=== PATIENT | female | born 1970 | race Caucasian/White ===

== ENCOUNTER 2018-02-25 03:41 | Observation (INO) | payer OTHER ==
[~2018-02-25] VITALS: Ht 157.5 cm; Wt 52.6 kg
[~2018-02-25 03:41] MED LIST: AMOXICILLIN500 M2 PO; ANTIBIOTIC FOR UTI; ANUSOL HC EX; CEPHALEXIN500 MG PO; COLACE100 MG OR; DARVOCET N-100100 - OR; MOTRIN600 MG/TAB PO; NAPROSYN500 MG OR; NORCO1 TA1 PO; PRENAPLUS PO; ROBITUSSIN200 MG/10 PO; TYLENOL # 31 TA1 PO
[2018-02-25 04:50] LABS: URINE BILIRUBIN - DIPSTICK NEGATIVE (NEGATIVE); URINE BLOOD DIPSTICK NEGATIVE (NEGATIVE); URINE COLOR YELLOW; URINE GLUCOSE - DIPSTICK NEGATIVE (NEGATIVE); URINE KETONE NEGATIVE (NEGATIVE); URINE LEUK ESTERASE NEGATIVE (NEGATIVE); URINE PH 6.5 (4.5-8.0); URINE PROTEIN - DIPSTICK NEGATIVE (NEG-TRACE); URINE UROBILINOGEN - DIPSTICK 0.2 E.U./dL (0.2)
[2018-02-25 04:51] LABS: URINE CLARITY CLOUDY; URINE NITRITE - DIPSTICK POSITIVE (Negative)
[2018-02-25 04:54] LABS: HEMATOCRIT 37.8 % (37.0-47.0); IMMATURE GRANULOCYTES 0.1 % (0.0-5.0); MEAN CORPUSCULAR HGB 24.3 pG CALC (26.0-32.0); MEAN CORPUSCULAR HGB CONC 30.7 g/L CALC (32.0-36.0); NEUT# 4.57 thou/uL (2.00-7.15); RED BLOOD COUNT 4.78 mill/uL (4.20-5.60); RED CELL DISTRI WIDTH 18.2 % (11.5-15.5)
[2018-02-25 04:55] LABS: HEMOGLOBIN 11.6 g/dl (12.0-16.0); MEAN CELL VOLUME 79.1 fL CALC (80.0-100.0)
[2018-02-25 04:56] LABS: BARBITURATES NEGATIVE (NEGATIVE); COCAINE POSITIVE (NEGATIVE); METHADONE NEGATIVE (NEGATIVE); OXCYCODONE NEGATIVE (NEGATIVE); TETRAHYDROCANNABIONOL NEGATIVE (NEGATIVE); TRICYLIC ANTIDEPRESSANTS NEGATIVE (NEGATIVE)
[2018-02-25 04:57] LABS: URINE RBC 0-2 RBC/hpf (0-5); URINE SQUAMOUS EPITHELIAL CELL MODERATE EPI/hpf (0-FEW)
[2018-02-25 04:58] LABS: URINE BACTERIA FEW hpf; URINE BACTERIA MANY hpf
[2018-02-25 05:04] LABS: ALBUMIN 3.5 g/dL (3.2-5.0); ALKALINE PHOSPHATASE 60 u/l (38-126); BILIRUBIN, TOTAL 0.2 mg/dL (0.0-1.4); BUN 19 mg/dL (7-17); BUN/CREATININE RATIO 23 (12-20 (CALC)); CHLORIDE 110 mmol/l (95-108); CREATININE 0.8 mg/dL (0.5-1.0); GFR > 60 ML/MIN (>=60 (CALC)); GFR FOR AFR.AMER. > 60 ML/MIN (>=60 (CALC)); POTASSIUM 4.3 mmol/l (3.5-5.1); SGOT/AST 29 u/l (14-36); SGPT/ALT 29 u/l (9-52); SODIUM 144 mmol/l (137-146); TOTAL PROTEIN 6.2 g/dL (6.3-8.2)
[2018-02-25 05:06] LABS: ANION GAP 12 (6-22 (CALC))
[2018-02-25 05:07] LABS: CARBON DIOXIDE 26 mmol/l (22-30)
[2018-02-25 05:12] LABS: MYOGLOBIN 19 ng/mL (0 - 62)
[2018-02-25 06:45] VITALS: BP 170/79
[2018-02-25 07:00] VITALS: BP 170/92
[2018-02-25 11:00] VITALS: BP 162/82
[2018-02-25 12:00] VITALS: BP 162/80
[2018-02-25 13:00] VITALS: BP 162/86
[2018-02-25] MEDS ORDERED: LISINOPRIL10 MG PO (13:38)
[2018-02-25 14:00] VITALS: BP 162/86
== END 2018-02-25 14:49 | disposition home or self-care (01) ==
LOC: ED 03:41 → ED-I 05:40 → ED 06:29 → ICU 06:30
PROVIDERS: Emergency Medicine; ADMIT Internal Medicine; ATTEND Internal Medicine
DX: R07.9 Chest pain, unspecified (principal); F14.10 Cocaine abuse, uncomplicated; I10 Essential (primary) hypertension; F17.200 Nicotine dependence, unspecified, uncomplicated; E78.5 Hyperlipidemia, unspecified; D63.8 Anemia in other chronic diseases classified elsewhere; E46 Unspecified protein-calorie malnutrition; Z86.74 Personal history of sudden cardiac arrest; Z91.14 Patient's other noncompliance with medication regimen; Z68.20 Body mass index [BMI] 20.0-20.9, adult

== ENCOUNTER 2019-01-17 13:42 | Emergency (ER) | payer OTHER ==
[~2019-01-17] VITALS: Ht 157.5 cm; Wt 59.1 kg
[~2019-01-17 13:42] MED LIST changes: +LISINOPRIL10 MG PO
[2019-01-17 14:32] LABS: IMMATURE GRANULOCYTES 0.5 % (0.0-5.0); MEAN CORPUSCULAR HGB CONC 27.5 g/L CALC (32.0-36.0); NEUT# 10.03 thou/uL (2.00-7.15); RED BLOOD COUNT 4.89 mill/uL (4.20-5.60); RED CELL DISTRI WIDTH 18.6 % (11.5-15.5)
[2019-01-17 14:34] LABS: HEMOGLOBIN 8.8 g/dl (12.0-16.0); MEAN CELL VOLUME 65.4 fL CALC (80.0-100.0)
[2019-01-17 14:49] LABS: ALKALINE PHOSPHATASE 80 u/l (38-126); ANION GAP 12 (6-22 (CALC)); BUN 15 mg/dL (7-17); BUN/CREATININE RATIO 14 (12-20 (CALC)); CARBON DIOXIDE 27 mmol/l (22-30); CHLORIDE 103 mmol/l (95-108); CREATININE 1.1 mg/dL (0.5-1.0); GFR 53 ML/MIN (>=60 (CALC)); GFR FOR AFR.AMER. > 60 ML/MIN (>=60 (CALC)); LIPASE 49 u/l (23-300); SGOT/AST 20 u/l (14-36); SODIUM 138 mmol/l (137-146); TOTAL PROTEIN 7.3 g/dL (6.3-8.2)
[2019-01-17 14:54] LABS: BILIRUBIN, TOTAL 0.8 mg/dL (0.0-1.4)
[2019-01-17 15:39] LABS: URINE BILIRUBIN - DIPSTICK NEGATIVE (NEGATIVE); URINE BLOOD DIPSTICK NEGATIVE (NEGATIVE); URINE COLOR YELLOW; URINE GLUCOSE - DIPSTICK NEGATIVE (NEGATIVE); URINE KETONE NEGATIVE (NEGATIVE); URINE LEUK ESTERASE NEGATIVE (NEGATIVE); URINE NITRITE - DIPSTICK NEGATIVE (Negative); URINE PH 6.5 (4.5-8.0); URINE PROTEIN - DIPSTICK NEGATIVE (NEG-TRACE); URINE SPECIFIC GRAVITY <=1.005
[2019-01-17 15:56] LABS: BARBITURATES NEGATIVE (NEGATIVE); COCAINE POSITIVE (NEGATIVE); METHADONE NEGATIVE (NEGATIVE); OXCYCODONE NEGATIVE (NEGATIVE); TETRAHYDROCANNABIONOL NEGATIVE (NEGATIVE); TRICYLIC ANTIDEPRESSANTS NEGATIVE (NEGATIVE)
[2019-01-17] MEDS ORDERED: ONDANSETRON4 MG PO (16:05)
[2019-01-17 16:20] VITALS: BP 137/76
== END 2019-01-17 16:20 | disposition home or self-care (01) ==
LOC: ED 13:42
PROVIDERS: Family Medicine
DX: R10.11 Right upper quadrant pain (principal); R10.12 Left upper quadrant pain; I10 Essential (primary) hypertension; F17.210 Nicotine dependence, cigarettes, uncomplicated; R06.02 Shortness of breath

== ENCOUNTER 2019-01-21 19:52 | Observation (INO) | payer OTHER ==
[~2019-01-21] VITALS: Ht 157.5 cm; Wt 57.2 kg
[~2019-01-21 19:52] MED LIST changes: +ONDANSETRON4 MG PO
--- NOTE | 2019-01-21 19:52 | NUR ---
PATIENT TO TREATMENT AREA AND STRAIGHT TO BATHROOM FOR URINE SAMPLE.
--- NOTE | 2019-01-21 19:56 | NUR ---
TRIAGE COMPLETED AT BEDSIDE. PATIENT UNDRESSED INTO A GOWN. REQUESTING TV REMOTE, STATES SHE JUST WANTS TO SLEEP. AWAITING MD PIÑA.
[2019-01-21 20:41] LABS: URINE BILIRUBIN - DIPSTICK NEGATIVE (NEGATIVE); URINE BLOOD DIPSTICK NEGATIVE (NEGATIVE); URINE COLOR YELLOW; URINE GLUCOSE - DIPSTICK NEGATIVE (NEGATIVE); URINE KETONE NEGATIVE (NEGATIVE); URINE LEUK ESTERASE NEGATIVE (NEGATIVE); URINE NITRITE - DIPSTICK NEGATIVE (Negative); URINE PROTEIN - DIPSTICK TRACE mg/dL (NEG-TRACE); URINE SPECIFIC GRAVITY >=1.030
--- NOTE | 2019-01-21 20:42 | NUR ---
PATEINT MEDICATED ORDERED. WILL MONITOR FOR EFFECT. PATIENT AWARE OF PENDING XRAY.
[2019-01-21 21:03] LABS: HEMATOCRIT 28.5 % (37.0-47.0); HEMOGLOBIN 7.9 g/dl (12.0-16.0); IMMATURE GRANULOCYTES 0.5 % (0.0-5.0); MEAN CELL VOLUME 65.5 fL CALC (80.0-100.0); MEAN CORPUSCULAR HGB 18.2 pG CALC (26.0-32.0); MEAN CORPUSCULAR HGB CONC 27.7 g/L CALC (32.0-36.0); NEUT# 5.91 thou/uL (2.00-7.15); RED BLOOD COUNT 4.35 mill/uL (4.20-5.60); RED CELL DISTRI WIDTH 18.6 % (11.5-15.5)
[2019-01-21 21:20] LABS: ALBUMIN 3.3 g/dL (3.2-5.0); ALKALINE PHOSPHATASE 71 u/l (38-126); ANION GAP 10 (6-22 (CALC)); BUN 14 mg/dL (7-17); BUN/CREATININE RATIO 14 (12-20 (CALC)); CARBON DIOXIDE 26 mmol/l (22-30); CHLORIDE 108 mmol/l (95-108); GFR 59 ML/MIN (>=60 (CALC)); GFR FOR AFR.AMER. > 60 ML/MIN (>=60 (CALC)); LIPASE 66 u/l (23-300); POTASSIUM 4.3 mmol/l (3.5-5.1); SGOT/AST 14 u/l (14-36); SODIUM 139 mmol/l (137-146); TOTAL PROTEIN 6.2 g/dL (6.3-8.2)
[2019-01-21 21:21] LABS: AMYLASE < 30 u/l (30-110); BILIRUBIN, TOTAL 0.3 mg/dL (0.0-1.4)
--- NOTE | 2019-01-21 21:30 | NUR ---
PATIENT STATES PAIN IS A 6 ON 1-10 PAIN SCALE. AWAITING CXR TO BE COMPLETED.
--- NOTE | 2019-01-21 22:40 | NUR ---
PATIENT RETURNS FROM RADIOLOGY. ASKING FOR ICE CHIPS. REMINDED OF NPO STATUS WHILE AWAITING CT RESULTS. VERBALIZES UNDERSTANDING.
--- NOTE | 2019-01-21 23:25 | NUR ---
PATIENT UP TO BATHROOM WITH MINIMAL ASSIST.
--- NOTE | 2019-01-21 23:47 | NUR ---
MD AT BEDSIDE TO DISCUSS ALL RESULTS AND PLAN OF CARE.
[2019-01-22] VITALS (7 sets, daily range): BP systolic 138–155; BP diastolic 70–95
[2019-01-22 00:07] LABS: BARBITURATES NEGATIVE (NEGATIVE); COCAINE POSITIVE (NEGATIVE); METHADONE NEGATIVE (NEGATIVE); OXCYCODONE NEGATIVE (NEGATIVE); TETRAHYDROCANNABIONOL NEGATIVE (NEGATIVE); TRICYLIC ANTIDEPRESSANTS NEGATIVE (NEGATIVE)
--- NOTE | 2019-01-22 00:16 | NUR ---
REPORT CALLED TO KAREN CHAVES. PATIENT READIED FOR TRANSPORT TO FLOOR. AWAITING ADMISSION PACKET PRIOR TO DEPARTURE.
--- NOTE | 2019-01-22 00:35 | NUR ---
PT ARRIVED TO THE FLOOR VIA WC ACCOMPANIED BY ED NURSE. PT APPEARS TO BE IN STABLE CONDITION, SELF AMBULATED TO STANDING SCALE AND TO THE BED. AIDE IN W/PT AT THIS TIME OBTAINING V/S AND ORIENTING PT TO ROOM,CALL SYSTEM, LIGHTS AND BED.
--- NOTE | 2019-01-22 00:47 | NUR ---
TO MS2 VIA W/C
--- NOTE | 2019-01-22 00:56 | NUR ---
PATIENT TO FLOOR ON MONITOR VIA WHEELCHAIR.
--- NOTE | 2019-01-22 01:15 | NUR ---
PT HAS BEEN ASSESSED, ABD TENDER TO PALPATE RUQ AND RLQ. PT DENIES N/V/D AND IS ASKING FOR FOOD/PROVIDED SANDWICH AND DRINK. CALL LIGHT IS IN PT HAND, TV AND LIGHTS ON. SHE HAS BEEN ENCOURAGED TO CALL NEEDS ARISE.
--- NOTE | 2019-01-22 04:15 | NUR ---
PT IS SLEEPING AT THIS TIME. NO S/O DISTRESS NOTED.
[2019-01-22 06:41] LABS: PROTHROMBIN TIME 10.2 SECONDS (9.0-12.5)
--- NOTE | 2019-01-22 07:19 | NUR ---
PT A/O X3. SPEECH IS CLEAR. RESP EVEN AND UNLABORED. LUNG SOUNDS CLEAR. TELE IN PLACE. BOWEL SOUNDS ACTIVE X4. PT C/O ACHING ABDOMINAL PAIN; 10 OUT OF 10. RT SIDED ABDOMINAL TENDERNESS. REPOSITONED FOR COMFORT. DISCUSSED W/ PT I WILL GET ORDER FOR PAIN MEDICATION. PT STATES UNDERSTANDING. #20 LAC SL. FLUSHED AND PATENT. SITE APPEARS HEALTHY. STRONG RADIAL AND PEDAL PULSES. SKIN INTACT. PT DENIES ANY FURTHER NEEDS. POC DISCUSSED. SAFETY PRECAUTIONS IN PLACE. CALL LIGHT IN REACH. WILL CONTINUE TO MONITOR.
--- NOTE | 2019-01-22 08:10 | NUR ---
PT REPORT RECIEVED FROM KAREN CHAVES. PT RESTING. NO S/S OF DISTRESS. CALL LIGHT IN REACH. WILL CONTINUE TO MONITOR.
--- NOTE | 2019-01-22 12:00 | NUR ---
PT EATING LUNCH. NO C/O PAIN OR NEEDS. CALL LIGHT IN REACH. WILL CONTINUE TO MONITOR.
--- NOTE | 2019-01-22 14:10 | NUR ---
ANESTHESIA TO FLOOR TO DISCUSS POSSIBLE PROCEDURE TOMORROW. PT STATES UNDERSTANDING. CONSENT READ AND DISCUSSED W/ PT BY SUBSCRIPTION AGENT. PT VERALIZES UNDERSTANDING. CONSENT SIGNED.
--- NOTE | 2019-01-22 16:32 | NUR ---
PT RESTING. NO C/O PAIN OR NEEDS. CALL LIGHT IN REACH. WILL CONTINUE TO MONITOR.
[2019-01-22 16:57] LABS: URINE BILIRUBIN - DIPSTICK NEGATIVE (NEGATIVE); URINE BLOOD DIPSTICK NEGATIVE (NEGATIVE); URINE COLOR YELLOW; URINE GLUCOSE - DIPSTICK NEGATIVE (NEGATIVE); URINE KETONE NEGATIVE (NEGATIVE); URINE LEUK ESTERASE NEGATIVE (Negative); URINE NITRITE - DIPSTICK NEGATIVE (Negative); URINE PH 5.5 (4.5-8.0); URINE PROTEIN - DIPSTICK TRACE mg/dL (NEG-TRACE); URINE SPECIFIC GRAVITY 1.025; URINE UROBILINOGEN - DIPSTICK 0.2 E.U./dL (0.2)
[2019-01-22 17:02] LABS: URINE CLARITY CLEAR
[2019-01-22 17:21] LABS: BARBITURATES NEGATIVE (NEGATIVE); COCAINE POSITIVE (NEGATIVE); METHADONE NEGATIVE (NEGATIVE); OXCYCODONE NEGATIVE (NEGATIVE); TETRAHYDROCANNABIONOL NEGATIVE (NEGATIVE); TRICYLIC ANTIDEPRESSANTS NEGATIVE (NEGATIVE)
--- NOTE | 2019-01-22 20:43 | NUR ---
pt medicated as orders provide and for pain reported 9/10 in ruq of the abd. pt assessed/tender to palpate in ruq. pt describes pain mostly under right breast/upper abd area. no noted edema. pulses are strong. neuro's intact. locx3. no s/o distress. denies n/v at this time. pt high fowlers left watching tv.
--- NOTE | 2019-01-23 | NUR ---
PT PLACED NPO AND REMINDED/FLUIDS REMOVED FROM BEDSIDE. PT COMPLETED 75% OF NULYTELY.
--- NOTE | 2019-01-23 03:38 | NUR ---
PT IS SLEEPING SOUNDLY, NO S/O DISTRESS AT THIS TIME. PT HAS BEEN NPO SINCE MIDNIGHT. CALL LIGHT AT SIDE.
[2019-01-23 04:35] VITALS: BP 131/80
[2019-01-23 05:47] LABS: HEMATOCRIT 31.1 % (37.0-47.0); HEMOGLOBIN 8.5 g/dl (12.0-16.0); MEAN CELL VOLUME 64.8 fL CALC (80.0-100.0); MEAN CORPUSCULAR HGB 17.7 pG CALC (26.0-32.0); MEAN CORPUSCULAR HGB CONC 27.3 g/L CALC (32.0-36.0); RED BLOOD COUNT 4.8 mill/uL (4.20-5.60)
--- NOTE | 2019-01-23 05:59 | NUR ---
PT IS SLEEPING SOUNDLY, DID NOT AWAKE TO MY ENTERING ROOM. ROOM IS DARK/COOL. NO S/O DISTRESS. CALL LIGHT IS AT SIDE AND BED IN LOWEST POSITION.
[2019-01-23 06:18] LABS: ANION GAP 11 (6-22 (CALC)); BUN 12 mg/dL (7-17); BUN/CREATININE RATIO 13 (12-20 (CALC)); CARBON DIOXIDE 25 mmol/l (22-30); CHLORIDE 110 mmol/l (95-108); GFR 59 ML/MIN (>=60 (CALC)); GFR FOR AFR.AMER. > 60 ML/MIN (>=60 (CALC)); POTASSIUM 4.3 mmol/l (3.5-5.1); SODIUM 141 mmol/l (137-146)
[2019-01-23 08:40] VITALS: BP 151/77
--- NOTE | 2019-01-23 08:40 | NUR ---
ASSESSMENT IS COMPLETED: IV SITE IS FREE FROM REDNESS OR EDEMA. HR IS REG,PULSES ARE STRONG X4, ABD IS SOFT WITH ACTIVE BS. BREATH SOUNDS ARE CLEAR, BILATERALLY. TELE MONITOR IN PLACE. CONTINUE TO OSBERVE AND MONITOR.
[2019-01-23 10:19] LABS: COCAINE POSITIVE (NEGATIVE); METHADONE NEGATIVE (NEGATIVE); TETRAHYDROCANNABIONOL NEGATIVE (NEGATIVE)
[2019-01-23 10:20] LABS: BARBITURATES NEGATIVE (NEGATIVE); OXCYCODONE NEGATIVE (NEGATIVE); TRICYLIC ANTIDEPRESSANTS NEGATIVE (NEGATIVE)
[2019-01-23 10:40] VITALS: BP 158/93
--- NOTE | 2019-01-23 12:30 | NUR ---
PT IS RELAXING AND ANXIOUSLY WAITING TO SPEAK WITH THE DR ABOUT THE PLANS FOR TODAY., IV SITE IS FREE FROM REDNESS OR EDEMA.
--- NOTE | 2019-01-23 12:53 | NUR ---
FULL LIQUID AND AMBULATING TO THE BATHROOM. WILL DO PROCEDURE ON SATURDAY AFTERNOON. CONTINUE TO OSBERVE AND MONITPR.
[2019-01-23 14:58] VITALS: BP 135/84
--- NOTE | 2019-01-23 16:30 | NUR ---
PT IS RELAXING IN BED WITH NO DISTRESS NOTED. IV SITE IS FREE FROM REDNESS OR EDEAM. CONTINUE TO OSBERVE AND MONITOR.
--- NOTE | 2019-01-23 19:00 | NUR ---
RECIEVED REPROT FROM DAY NURSE. PT RESTING IN BE WATCHING TV. NO NEEDS AT THIS TIME CALL SORENSON IN REACH. WILL CONTINUE TO MONITOR.
[2019-01-23 20:06] VITALS: BP 137/78
--- NOTE | 2019-01-23 20:30 | NUR ---
PT RESTING IN BED WATCHING TV. ASSESMENT COMPLETED AT THIS TIME, SEE INTERVENTIONS. PT C/O IV PAIN. NO REDNESS OR EDEMA NOTED, FLUSHES WITH NO ISSUES. PT HAS NO NEEDS AT THIS TIME. CALL SORENSON IN REACH. WILL CONTINUE TO MONITOR.
--- NOTE | 2019-01-24 | NUR ---
PT RESTING IN BED WITH EYES CLOSED. NO S/S OF DISTRESS NOTED. CALL SORENSON IN REACH. WILL CONTINUE TO MONITOR.
[2019-01-24 00:29] VITALS: BP 130/79
--- NOTE | 2019-01-24 04:00 | NUR ---
PT APPEARS TO BE ASLEEP AT THIS TIME. NO S/S OF DISTRESS NOTED. CALL SORENSON IN REACH. WILL CONTINUE TO MONITOR.
[2019-01-24 04:07] VITALS: BP 149/90
--- NOTE | 2019-01-24 06:45 | NUR ---
RECIEVED REPORT FROM MORRO DICKINSON. [facility] PT [facility].
[2019-01-24 08:00] VITALS: BP 144/77
--- NOTE | 2019-01-24 08:00 | NUR ---
PT RESTING IN BED, ASSESSMENT COMPLETED. PT COMPLAINS OF R FLANK PAIN, WILL BE MEDICATED PER ORDERS. A&OX3, ABLE TO MAKE NEEDS KNOWN. CALL LIGHT IN REACH. PT TO HAVE EGD/COLONOSCOPY ON SATURDAY. WILL MONITOR.
--- NOTE | 2019-01-24 09:10 | NUR ---
PT UP TO SHOWER, STEADY GAIT.
[2019-01-24 11:29] VITALS: BP 128/78
[2019-01-24] MEDS ORDERED: PROTONIX40 MG PO (11:34)
[2019-01-24] MEDS ORDERED: SUCRALFATE1 GM/10 ML PO (11:35)
--- NOTE | 2019-01-24 12:10 | NUR ---
IV site discontinued, cath intact. No edema , no redness, voices no discomfort.
--- NOTE | 2019-01-24 12:11 | NUR ---
DR. WHEAT AT BEDSIDE FOR ASSESSMENT AND TO DISCUSS PLAN OF CARE, NEW ORDERS RECIEVED.
--- NOTE | 2019-01-24 12:30 | NUR ---
Discharge instructions given. Patient verbalizes understanding of same. Discharged in stable condition via Wheelchair to Home with family. All belongings sent with pt. PAPER PRESCRIPTION SENT HOME WITH PT.
== END 2019-01-24 12:18 | disposition home or self-care (01) ==
LOC: ED 19:52 → ED-I 23:50 → ED 01-22 00:06 → MS2 01-22 00:07
PROVIDERS: Emergency Medicine; Internal Medicine; Surgery; ADMIT Internal Medicine; ATTEND Internal Medicine
DX: R10.11 Right upper quadrant pain (principal); D50.0 Iron deficiency anemia secondary to blood loss (chronic); R19.5 Other fecal abnormalities; I51.7 Cardiomegaly; R79.89 Other specified abnormal findings of blood chemistry; F14.10 Cocaine abuse, uncomplicated; F12.90 Cannabis use, unspecified, uncomplicated; I10 Essential (primary) hypertension; F17.210 Nicotine dependence, cigarettes, uncomplicated; Z86.74 Personal history of sudden cardiac arrest; Z87.11 Personal history of peptic ulcer disease
CPT/HCPCS: G0378; J1756; Q9967; S0164

== ENCOUNTER 2019-01-25 00:11 | Emergency (ER) | payer OTHER ==
[~2019-01-25] VITALS: Ht 157.5 cm; Wt 65.0 kg
[~2019-01-25 00:11] MED LIST changes: +PROTONIX40 MG PO; +SUCRALFATE1 GM/10 ML PO
[2019-01-25 01:37] LABS: ALBUMIN 3.2 g/dL (3.2-5.0); ALKALINE PHOSPHATASE 63 u/l (38-126); AMYLASE 36 u/l (30-110); ANION GAP 9 (6-22 (CALC)); BILIRUBIN, TOTAL 0.2 mg/dL (0.0-1.4); BUN 14 mg/dL (7-17); BUN/CREATININE RATIO 15 (12-20 (CALC)); CARBON DIOXIDE 26 mmol/l (22-30); CHLORIDE 111 mmol/l (95-108); CREATININE 0.9 mg/dL (0.5-1.0); GFR > 60 ML/MIN (>=60 (CALC)); GFR FOR AFR.AMER. > 60 ML/MIN (>=60 (CALC)); LIPASE 57 u/l (23-300); POTASSIUM 3.7 mmol/l (3.5-5.1); SODIUM 142 mmol/l (137-146); TOTAL PROTEIN 6.3 g/dL (6.3-8.2)
[2019-01-25 01:40] LABS: SGOT/AST 35 u/l (14-36)
[2019-01-25 01:42] LABS: HEMATOCRIT 27.4 % (37.0-47.0); HEMOGLOBIN 7.7 g/dl (12.0-16.0); IMMATURE GRANULOCYTES 0.4 % (0.0-5.0); MEAN CELL VOLUME 65.7 fL CALC (80.0-100.0); MEAN CORPUSCULAR HGB 18.5 pG CALC (26.0-32.0); MEAN CORPUSCULAR HGB CONC 28.1 g/L CALC (32.0-36.0); NEUT# 4.12 thou/uL (2.00-7.15); RED BLOOD COUNT 4.17 mill/uL (4.20-5.60); RED CELL DISTRI WIDTH 19.3 % (11.5-15.5)
[2019-01-25 01:50] LABS: MYOGLOBIN 19 ng/mL (0 - 62)
[2019-01-25 03:57] LABS: URINE BILIRUBIN - DIPSTICK NEGATIVE (NEGATIVE); URINE BLOOD DIPSTICK NEGATIVE (NEGATIVE); URINE COLOR YELLOW; URINE GLUCOSE - DIPSTICK NEGATIVE (NEGATIVE); URINE KETONE TRACE mg/dL (NEGATIVE); URINE NITRITE - DIPSTICK NEGATIVE (Negative); URINE PROTEIN - DIPSTICK NEGATIVE (NEG-TRACE)
[2019-01-25 03:58] LABS: URINE LEUK ESTERASE TRACE (NEGATIVE)
[2019-01-25 04:04] LABS: BARBITURATES NEGATIVE (NEGATIVE); COCAINE NEGATIVE (NEGATIVE); METHADONE NEGATIVE (NEGATIVE); OXCYCODONE NEGATIVE (NEGATIVE); TETRAHYDROCANNABIONOL NEGATIVE (NEGATIVE); TRICYLIC ANTIDEPRESSANTS NEGATIVE (NEGATIVE)
[2019-01-25 05:52] VITALS: BP 130/76
== END 2019-01-25 05:35 | disposition short-term general hospital (02) ==
LOC: ED 00:11
PROVIDERS: Emergency Medicine
DX: J18.9 Pneumonia, unspecified organism (principal); R07.9 Chest pain, unspecified; D64.9 Anemia, unspecified; I10 Essential (primary) hypertension; F14.10 Cocaine abuse, uncomplicated; F17.210 Nicotine dependence, cigarettes, uncomplicated; Z87.11 Personal history of peptic ulcer disease

== ENCOUNTER 2019-02-13 01:01 | Emergency (ER) | payer OTHER ==
[~2019-02-13] VITALS: Ht 157.5 cm; Wt 57.3 kg
[2019-02-13] MEDS ORDERED: LISINOPRIL5 MG PO (01:14)
[2019-02-13] MEDS ORDERED: ATORVASTATIN CA20 MG PO (01:15)
[2019-02-13] MEDS ORDERED: SPIRONOLACT25 MG PO (01:16)
[2019-02-13] MEDS ORDERED: FUROSEMIDE20 MG PO (01:16)
[2019-02-13 01:38] LABS: IMMATURE GRANULOCYTES 0.4 % (0.0-5.0); MEAN CORPUSCULAR HGB 19.9 pG CALC (26.0-32.0); MEAN CORPUSCULAR HGB CONC 28.4 g/L CALC (32.0-36.0); NEUT# 7.24 thou/uL (2.00-7.15); RED BLOOD COUNT 5.12 mill/uL (4.20-5.60); RED CELL DISTRI WIDTH 26.2 % (11.5-15.5)
[2019-02-13 01:39] LABS: TOTAL PROTEIN 7.3 g/dL (6.3-8.2)
[2019-02-13 01:41] LABS: HEMATOCRIT 35.9 % (37.0-47.0); HEMOGLOBIN 10.2 g/dl (12.0-16.0); MEAN CELL VOLUME 70.1 fL CALC (80.0-100.0)
[2019-02-13 01:46] LABS: ALBUMIN 4.2 g/dL (3.2-5.0); BILIRUBIN, TOTAL 0.5 mg/dL (0.0-1.4); CREATININE 2.6 mg/dL (0.5-1.0); POTASSIUM 4.7 mmol/l (3.5-5.1)
[2019-02-13 02:10] LABS: URINE BILIRUBIN - DIPSTICK NEGATIVE (NEGATIVE); URINE BLOOD DIPSTICK NEGATIVE (NEGATIVE); URINE COLOR YELLOW; URINE GLUCOSE - DIPSTICK NEGATIVE (NEGATIVE); URINE KETONE NEGATIVE (NEGATIVE); URINE LEUK ESTERASE NEGATIVE (NEGATIVE); URINE NITRITE - DIPSTICK NEGATIVE (Negative); URINE PROTEIN - DIPSTICK 30 mg/dL (NEG-TRACE); URINE SPECIFIC GRAVITY 1.025; URINE UROBILINOGEN - DIPSTICK 0.2 E.U./dL (0.2)
[2019-02-13 02:13] LABS: BARBITURATES NEGATIVE (NEGATIVE); COCAINE POSITIVE (NEGATIVE); METHADONE NEGATIVE (NEGATIVE); OXCYCODONE NEGATIVE (NEGATIVE); TETRAHYDROCANNABIONOL NEGATIVE (NEGATIVE); TRICYLIC ANTIDEPRESSANTS NEGATIVE (NEGATIVE)
[2019-02-13 02:14] LABS: URINE SQUAMOUS EPITHELIAL CELL FEW EPI/hpf (0-FEW)
[2019-02-13] MEDS ORDERED: TORADOL PO (03:32)
[2019-02-13 03:50] VITALS: BP 132/59
== END 2019-02-13 03:50 | disposition home or self-care (01) ==
LOC: ED 01:01
PROVIDERS: Family Medicine
DX: R07.89 Other chest pain (principal); I10 Essential (primary) hypertension; F17.200 Nicotine dependence, unspecified, uncomplicated

== ENCOUNTER 2019-11-21 00:26 | Emergency (ER) | payer OTHER ==
[~2019-11-21] VITALS: Ht 160 cm; Wt 54.5 kg
[~2019-11-21 00:26] MED LIST changes: +ATORVASTATIN CA20 MG PO; +FUROSEMIDE20 MG PO; +LISINOPRIL5 MG PO; +SPIRONOLACT25 MG PO; +TORADOL PO
[2019-11-21 00:59] LABS: HEMOGLOBIN 11.2 g/dl (12.0-16.0); IMMATURE GRANULOCYTES 0.5 % (0.0-5.0); MEAN CELL VOLUME 74.5 fL CALC (80.0-100.0); MEAN CORPUSCULAR HGB 20.9 pG CALC (26.0-32.0); NEUT# 8.52 thou/uL (2.00-7.15); RED BLOOD COUNT 5.37 mill/uL (4.20-5.60); RED CELL DISTRI WIDTH 19.2 % (11.5-15.5)
[2019-11-21 01:19] LABS: ALKALINE PHOSPHATASE 86 u/l (38-126); ANION GAP 23 (6-22 (CALC)); BILIRUBIN, TOTAL 0.8 mg/dL (0.0-1.4); BUN 30 mg/dL (7-17); BUN/CREATININE RATIO 17 (12-20 (CALC)); C-REACTIVE PROTEIN < 0.5 mg/dL (0-0.9); CARBON DIOXIDE 13 mmol/l (22-30); CHLORIDE 103 mmol/l (95-108); CREATININE 1.8 mg/dL (0.5-1.0); ETHYL ALCOHOL 0 mg/dl (0-30); GFR 30 ML/MIN (>=60 (CALC)); GFR FOR AFR.AMER. 36 ML/MIN (>=60 (CALC)); POTASSIUM 3.7 mmol/l (3.5-5.1); SGOT/AST 50 u/l (14-36); SODIUM 136 mmol/l (137-146); TOTAL PROTEIN 6.9 g/dL (6.3-8.2)
[2019-11-21 01:29] LABS: MYOGLOBIN 94 ng/mL (0 - 62)
[2019-11-21 03:29] LABS: URINE BILIRUBIN - DIPSTICK NEGATIVE (NEGATIVE); URINE BLOOD DIPSTICK MODERATE (NEGATIVE); URINE COLOR YELLOW; URINE GLUCOSE - DIPSTICK NEGATIVE (NEGATIVE); URINE KETONE NEGATIVE (NEGATIVE); URINE LEUK ESTERASE NEGATIVE (NEGATIVE); URINE NITRITE - DIPSTICK NEGATIVE (Negative); URINE PROTEIN - DIPSTICK 100 mg/dL (NEG-TRACE); URINE SPECIFIC GRAVITY >=1.030; URINE UROBILINOGEN - DIPSTICK 0.2 E.U./dL (0.2)
[2019-11-21 03:31] LABS: URINE MUCUS MANY hpf (NONE-FEW); URINE SQUAMOUS EPITHELIAL CELL FEW EPI/hpf (0-FEW); URINE WBC 0-2 WBC/hpf (0-5)
[2019-11-21 04:00] VITALS: BP 101/55
== END 2019-11-21 04:00 | disposition short-term general hospital (02) ==
LOC: ED 00:26 → EDBD 00:36 → ED 00:36
PROVIDERS: Family Medicine
DX: J96.90 Respiratory failure, unspecified, unspecified whether with hypoxia or hypercapnia (principal); F14.121 Cocaine abuse with intoxication with delirium; I47.2 Ventricular tachycardia; E87.2 Acidosis; S60.512A Abrasion of left hand, initial encounter; X58.XXXA Exposure to other specified factors, initial encounter; Z20.828 Contact with and (suspected) exposure to other viral communicable diseases
CPT/HCPCS: J0282